=== PATIENT | female | born 1990 | race Caucasian/White ===

== ENCOUNTER 2018-08-15 22:18 | Emergency (ER) | payer SELFPAY ==
[~2018-08-15] VITALS: Ht 162.6 cm; Wt 69.0 kg
[2018-08-16] MEDS ORDERED: ACETAMINOPHEN 500MG TABLET PO ONE
[2018-08-16] MEDS ORDERED: ACETAMINOPHEN WITH CODEINE 300/30MG TABLET PO ONE (00:15)
[2018-08-16 00:29] VITALS: BP 138/96
== END 2018-08-16 00:46 | disposition home or self-care (01) ==
LOC: ER 22:18
DX: K08.89 Other specified disorders of teeth and supporting structures (principal); K03.81 Cracked tooth; R03.0 Elevated blood-pressure reading, without diagnosis of hypertension; Z88.6 Allergy status to analgesic agent
CPT/HCPCS: 81025; 99283

== ENCOUNTER 2018-09-05 11:29 | Emergency (ER) | payer SELFPAY ==
[~2018-09-05] VITALS: Ht 162.6 cm; Wt 66.0 kg
[2018-09-05] MEDS ORDERED: HYDROCODONE/ACETAMINOPHEN 5/325MG TABLET PO PRN (13:45)
[2018-09-05 14:00] VITALS: BP 124/69
== END 2018-09-05 15:51 | disposition home or self-care (01) ==
LOC: ER 11:29
DX: K08.89 Other specified disorders of teeth and supporting structures (principal)
CPT/HCPCS: 99283